=== PATIENT | female | born 1955 | race Caucasian/White ===

== ENCOUNTER 2016-09-25 13:31 | Emergency (ER) | payer OTHER ==
[2016-09-25 13:38] VITALS: BP 123/79
[2016-09-25] MEDS ORDERED: TETANUS/DIPHTHERIA/PERTUSSIS 0.5 ML SYRINGE IM ONE ×2 (13:45→13:51)
--- NOTE | 2016-09-25 13:47 | ED Physician Documentation ---
PD HPI UPPER EXT INJURY - Stated complaint Stated Complaint: THUMB LAC - Chief complaint Chief Complaint: Laceration - History obtained from History obtained from: Patient - History of Present Illness Location: Right, Finger Type of injury: Other (avulsed area of skin on R thumb from cheese grater at home just [employer], no pain, tetanus >10 yrs ago.) Review of Systems Constitutional: reports: Reviewed and negative Throat: reports: Reviewed and negative Cardiac: reports: Reviewed and negative PD PAST MEDICAL HISTORY - Past Medical History Cardiovascular: Hypertension Endocrine/Autoimmune: HyPOthyroidism Psych: Depression Musculoskeletal: Osteoarthritis - Past Surgical History Past Surgical History: Yes Ortho: Other /INSPECTOR CIRCUITRY NEGATIVE: Hysterectomy HEENT: Tonsil/Adenoidectomy - Present Medications Home Medications: Ambulatory Orders Medication Instructions Recorded Confirmed Levothyroxine Sodium [Synthroid] 175 mcg PO DAILY 06/19/13 06/19/13 Sertraline [Zoloft] 25 mg PO DAILY 06/19/13 06/19/13 Telmisartan [Micardis] 40 mg PO DAILY 06/19/13 06/19/13 - Allergies Allergies/Adverse Reactions: Allergies Allergy/AdvReac Type Severity Reaction Status Date / Time chocolate flavor Allergy migraine Verified 06/19/13 07:21 meperidine HCl * Allergy Rash Verified 06/19/13 07:21 [From Demerol] - Social History Does the pt smoke?: No Smoking Status: Never smoker Does the pt drink ETOH?: No Does the pt have substance abuse?: No - Immunizations Immunizations are current?: No Immunizations: TDAP current <10years - POLST Patient has POLST: No PD ED PE NORMAL - Vitals Vital signs reviewed: Yes - General General: Alert and oriented X 3, No acute distress - Extremities Extremities: Other (skin avulsion to the ulnar side of the IP joint of R thumb on radial side, not deep. Good ROM.) - Neuro Neuro: Alert and oriented X 3, Normal speech - Psych Psych: Normal mood, Normal affect Results - Vitals Vitals: Vital Signs - 24 hr 09/25/16 13:34 Temperature 36.7 C Heart Rate 66 Respiratory 16 Rate Blood Pressure 123/79 O2 Saturation 95 Oxygen O2 Source Room air PD MEDICAL DECISION MAKING - ED course ED course: Wound irrigated and dressed with gelfoam and tubegauze and counselled on wound care. tetanus updated. Departure - Departure Disposition: Home, Self Care Clinical Impression: Avulsion of skin of right thumb Qualifiers: Encounter type: initial encounter Qualified Code(s): S61.001A - Unspecified open wound of right thumb without damage to nail, initial encounter Condition: Good Record reviewed to determine appropriate education?: Yes Instructions: ED Avulsion Dermal Comments: Keep the current dressing on for 48 hours, at that juncture he can take it off and wash it with soap and water and replace it with a clean Band-Aid with bacitracin ointment which is available [id number]. Return if pain increases, if you develop redness or swelling or drainage.
== END 2016-09-25 14:00 | disposition home or self-care (01) ==
LOC: ED 13:31
DX: S61.001A Unspecified open wound of right thumb without damage to nail, initial encounter (principal); W27.4XXA Contact with kitchen utensil, initial encounter; Y93.G1 Activity, food preparation and clean up; Y92.009 Unspecified place in unspecified non-institutional (private) residence as the place of occurrence of the external cause; Z23 Encounter for immunization; I10 Essential (primary) hypertension; E03.9 Hypothyroidism, unspecified
CPT/HCPCS: 90471; 99283